=== PATIENT | male | born 1950 | race Caucasian/White ===

== ENCOUNTER 2019-06-28 01:49 | Inpatient (IN) | payer OTHER, MEDICARE ==
[~2019-06-28] VITALS: Ht 170.2 cm; Wt 88.4 kg
[~2019-06-28 01:49] MED LIST: ASPI81CH PO; LISI20 PO; Omeprazole20 M1; QUET100 PO; QUET25 PO
[2019-06-28 02:07] LABS: BASOPHILS ABSOLUTE AUTO 0.03 K/mm3 (0.00-0.23); BASOPHILS PERCENT AUTO 1 % (0-2); EOSINOPHILS ABSOLUTE AUTO 0.11 K/mm3 (0.00-0.68); EOSINOPHILS PERCENT AUTO 2 % (0-6); Hemoglobin 8.9 g/dL (13.5-17.5); IMMATURE GRAN ABSOLUTE AUTO 0.02 K/mm3 (0.00-0.10); IMMATURE GRAN PERCENT AUTO 0 % (0-1); LYMPHOCYTES ABSOLUTE AUTO 0.41 K/mm3 (0.84-5.20); LYMPHOCYTES PERCENT AUTO 8 % (21-46); MONOCYTES ABSOLUTE AUTO 0.49 K/mm3 (0.16-1.47); MONOCYTES PERCENT AUTO 10 % (4-13); Mean Corpuscular HGB 26.4 pg (26.0-34.0); Mean Corpuscular HGB Conc 30.7 g/dL (31.5-36.5); Mean Corpuscular Volume 86 fL (80-100); Mean Platelet Volume 10.3 fL (9.1-12.4); NEUTROPHILS PERCENT AUTO 80 % (41-73); Platelet Count 276 K/mm3 (150-400); RDW Coefficient Variation 15.2 % (11.7-14.2); RDW Standard Deviation 48.1 fL (35.1-46.3); Red Blood Cell Count 3.37 M/mm3 (4.30-5.90); White Blood Cell Count 5.16 K/mm3 (4.00-11.30)
[2019-06-28 02:25] LABS: Alanine Aminotransfer (ALT/SGP 26 U/L (12-78); Albumin, Blood 2.8 g/dL (3.4-5.0); Albumin/Globulin Ratio 0.7 (0.8-1.8); Alk Phos 111 U/L (50-136); Anion Gap 7 mmol/L (6-16); Aspartate Aminotrans (AST/SGOT 30 U/L (12-37); Bilirubin, Total 0.2 mg/dL (0.1-1.0); Blood Urea Nitrogen 17 mg/dL (8-24); Bun/Creatinine Ratio 16.7 (12.0-20.0); CO2, Blood 25 mmol/L (21-32); Calcium, Blood 8.5 mg/dL (8.5-10.1); Chloride, Blood 107 mmol/L (98-108); Creatinine, Blood 1.02 mg/dL (0.60-1.20); Glomerular Filtration Rate >60 (60-); Glucose, Blood 142 mg/dL (70-99); Potassium, Blood 3.8 mmol/L (3.5-5.5); Sodium, Blood 139 mmol/L (136-145); Total Protein, Blood 6.8 g/dL (6.4-8.2)
[2019-06-28 07:37] LABS: Percent Saturation 6.7 % (20.0-50.0)
[2019-06-28 07:41] LABS: Troponin I 0.024 ng/mL (0.000-0.040)
[2019-06-28] MEDS ORDERED: Vitamin D2000 UNIT PO (07:42)
[2019-06-28] MEDS ORDERED: QUET25 PO (07:46)
--- NOTE | 2019-06-28 13:44 | NUR ---
DR. HERNANDEZ NOTIFIED OF PT INCREASED RESTLESSNESS AND C/O DIFFICULTY BREAHTING. PT WITH AUDIBLE EXP WHEEZES AND TACHYPNEA. LS WITH EXP WHEEZES NOTED. ORDERS FOR RT TO PROVIDE A NEB TREATMENT AND MED ORDERS FOR PRN ANTIVAN FOR ANXIETY.
--- NOTE | 2019-06-28 14:14 | NUR ---
THIS RN TO ROOM; RECEIVED REPORT FROM BLANCA Self RN; RT AT BEDSIDE WITH BREATHING TREATMENT AND OXIMIZER AT 12-13L O2; RT SPOKE WITH DR HERNANDEZ; PLANS TO PLACE PT ON BIPAP. NO OUTPUT T/O; BLADDER SCAN 115cc. WILL CONTINUE TO MONITOR.
--- NOTE | 2019-06-28 14:21 | NUR ---
Pt put on bipap by Nakul Davis; currently weaned from [id number] to 70% 12/6 settings, rr 30/min. spo2 96%.
--- NOTE | 2019-06-28 14:50 | NUR ---
UNABLE TO ASSESS BP WITH MONITOR OR MANUALLY; PT ON BIPAP WITH O2 SATURATIONS IN 90'S. NOTIFIED DR HERNANDEZ; NEW ORDER TO TRANSFER TO ICU; LEVOPHED AND BACTERIOLOGIST FOOD CONSULT. PT TRANSFERED TO ICU 6; BEDSIDE REPORT GIVEN TO RN ASSUMING CARE.
[2019-06-28 15:03] LABS: International Normalized Ratio 1.15; Prothrombin Time Results 12.2 Sec (9.7-11.5)
[2019-06-28 16:08] LABS: PCO2 Arterial 38.9 mmHg (35-45)
[2019-06-28 16:08] LABS: Source, Urine Catheter
[2019-06-28 16:15] LABS: Bilirubin, Urine Neg (Neg); Blood, Urine Neg (Neg); Glucose Qualitative, Urine Neg (Neg); Ketones, Urine Neg (Neg); Leukocyte Esterase, Urine Neg (Neg); Nitrite, Urine Neg (Neg); Protein, Urine 2+ (Neg); Urobilinogen, Urine 2+ (Normal)
--- NOTE | 2019-06-28 16:23 | NUR ---
Echocardiogram completed.
[2019-06-28 16:30] LABS: Appearance, Urine Clear (Clear); Color, Urine Yellow (P-Yellow)
[2019-06-28 16:32] LABS: Bacteria Few /hpf; Calcium Oxalate Crystals Few /hpf; Red Blood Cells, Urine 0-2 /hpf (0-2); Squamous Epithelial Cells Not Seen /hpf (Few); White Blood Cells, Urine 0-2 /hpf (0-5)
[2019-06-28 16:43] LABS: U Amphetamine Screen DETECTED; U Barbituate Screen Not Detected; U Benzodiazapine Screen Not Detected; U Buprenorphine Screen Not Detected; U Cannabinoids Screen DETECTED; U Cocaine Screen Not Detected; U Methadone Screen Not Detected; U Methamphetamine Screen DETECTED; U Opiates Screen DETECTED; U Oxycodone Screen Not Detected; U Phencyclidine Screen Not Detected; U Propoxyphene Screen Not Detected
[2019-06-28 17:42] LABS: Hematocrit 28.9 % (37.0-53.0); Hemoglobin 8.3 g/dL (13.5-17.5); Mean Corpuscular HGB 26.1 pg (26.0-34.0); Mean Corpuscular HGB Conc 28.7 g/dL (31.5-36.5); Mean Platelet Volume 10.2 fL (9.1-12.4); Platelet Count 267 K/mm3 (150-400); RDW Coefficient Variation 15.6 % (11.7-14.2); RDW Standard Deviation 52.4 fL (35.1-46.3); Red Blood Cell Count 3.18 M/mm3 (4.30-5.90); White Blood Cell Count 1.72 K/mm3 (4.00-11.30)
[2019-06-28 17:43] LABS: Mean Corpuscular Volume 91 fL (80-100)
--- NOTE | 2019-06-28 17:45 | NUR ---
NEXT OF KIN: ATTEMPTED TO CALL MICHAEL MARTINEZ LISTED PATIENTS SON AND NEXT OF KIN. ATTEMPTED THE NUMBER ON FILE [phone] WHICH DID NOT WORK, WELL THE PATIENTS NUMBER [phone] LEFT A GENERAL MESSAGE TO CALL THE ICU AND TALK TO THE SPECIAL EVENTS COORDINATOR. [facility] AND OBTAINED TWO OTHER NUMBERS LISTED FOR THE SON ROSANNE CELL NUMBER [phone] THAT DID NOT HAVE A VOICE MAIL SET UP AND A WORK NUMBER OF [phone] WHICH ALSO DID NOT HAVE A VOICE MAIL SET UP. UPDATED THE DR AND NURSE.
[2019-06-28 17:59] LABS: Troponin I 0.033 ng/mL (0.000-0.040)
[2019-06-28 18:01] LABS: Albumin, Blood 1.7 g/dL (3.4-5.0); Albumin/Globulin Ratio 0.7 (0.8-1.8); Bilirubin, Total 0.3 mg/dL (0.1-1.0); Bun/Creatinine Ratio 13.4 (12.0-20.0); Calcium, Blood 7.2 mg/dL (8.5-10.1); Creatinine, Blood 1.72 mg/dL (0.60-1.20); Globulin, Blood 2.5 g/dL (2.2-4.0)
[2019-06-28 18:02] LABS: Total Protein, Blood 4.2 g/dL (6.4-8.2)
[2019-06-28 18:05] LABS: BAND PERCENT MAN 34 % (0-8); BASOPHILS PERCENT MAN 0 % (0-2); EOSINOPHILS PERCENT MAN 0 % (0-6); LYMPHOCYTES ABSOLUTE MAN 0.17 K/mm3 (0.84-5.20); LYMPHOCYTES PERCENT MAN 10 % (21-46); MONOCYTES PERCENT MAN 18 % (4-13); NEUTROPHILS ABSOLUTE MAN 1.23 K/mm3 (1.96-9.15); SEG NEUTROPHILS PERCENT MAN 38 % (41-73); TOTAL CELLS COUNTED 50
[2019-06-28 18:34] LABS: Automated BF RBC Count 0.004 M/mm3 (0-0); Automated BF WBC Count 3.224 K/mm3 (0-999); Body Fluid WBC Count 3224 /mm3 (0-999); RBC Count, Body Fluid 4000 /mm3 (0-0)
[2019-06-28 18:48] LABS: pH, Body Fluid 7.9
[2019-06-28 18:56] LABS: Albumin, Body Fluid 1.6 g/dL; Protein, Body Fluid 3.5 g/dL
[2019-06-28 18:57] LABS: Total Cell Count, Body Fluid 100
[2019-06-28 18:58] LABS: Appearance, Body Fluid Hazy (Clear); Color, Body Fluid Yellow (None-Yellow)
--- NOTE | 2019-06-28 19:00 | NUR ---
ASSUMED PT CARE FROM [facility] PT INTUBATED AND SEDATED. VENT SETTINGS AC 24, TV 450, PEEP 5, FIO2 90%. PROPOFOL AT 55 MCG/KG/MIN. CHEST TUBE RECENTLY PLACED TO LEFT POSTERIOR CHEST WALL; NO CREPITUS PALPATED; CHEST TUBE TO WALL SUCTION. NO TIDALING IN WATER SEAL CHAMBER WHEN TEMPORARILY TURNED SUCTION OFF. MODERATE AMOUNTS OF SEROUS FLUID DRAINING TO CHEST TUBE. PT HAS EPI GTT INFUSING AT 10MCG/MIN, LEVOPHED AT 20MCG/MIN, AND VASOPRESSIN AT 0.04 UNITS/HR. NS AT 75MLS/HR. ZOSYN INFUSING. NIMBEX ORDERED; WAITING FOR PHARMACY TO SEND. LUNG SOUNDS ARE COARSE TO LEFT LOBES AND VERY DIMINISHED TO RIGHT LOBES. UNABLE TO GET AN ACCURATE BIOX READING; DR. BUTLER AT BEDSIDE AND AWARE. ORDERS TO OBTAIN ABG AT 1999 IF WE CONTINUE TO HAVE DIFFICULTIES OBTAINING BIOX. CARBALLO CATH PATENT AND DRAINING DARK, PERLITA COLORED URINE WITH SEDIMENT TO GRAVITY; MINIMAL OUTPUT. DR. BUTLER AWARE. BEDSIDE REPORT GIVEN. GOAL IS TO START NIMBEX, IMPROVE OXYGEN SATURATIONS AND TITRATE PRESSORS DOWN, STARTING WITH EPI. WILL CONTINUE TO COMMUNICATE CHANGES WITH DR. BUTLER.
[2019-06-28 19:02] LABS: International Normalized Ratio 1.23
[2019-06-28 19:03] LABS: Lactate Dehydrogenase, Body Fl 1780 U/L
--- NOTE | 2019-06-28 19:29 | NUR ---
PT ARRIVES TO UNIT FROM PCU AT 1440 FOR HYPOTENSION. PT ON BIPAP, ANXIOUS, TACHYPNEIC. ANSWERS QUESTIONS APPROPRIATELY. C/O BILATERAL FLANK PAIN, WORSE IN LEFT SIDE, RADIATES TO ABD, STARTING "AWHILE AGO", WORSE LAST NOC. PT PULLING ON BIPAP, STATES IT IS SUFFOCATING HIM. DR BUTLER AT BEDSIDE FOR ASSESSMENT. PT PALE, COOL. TACHYPNIC. HYPOTENSION NOTED, AFIB, LUNGS c EXPIRATORY WHEEZES THROUGHOUT. LABORED RESP. NO CVA TENDERNESS NOTED. ABD FIRM, DISTENDED, NON TENDER. 1508-LEVOPHED STARTED, TITRATED. 1518-ETOMIDATE 10 MG, ROCURONIUM 20 MG IV GIVEN, INTUBATED 8.0 ETT, 26 AT TEETH, + COLOR CHANGE, BILATERAL BREATH SOUNDS. 1530-PROPOFOL STARTED, TITRATED FOR SEDATION. BILATERAL WRIST RESTRAINTS PLACED. OGT PLACED, SCANT AMOUNT OF EMESIS RETURN, VERIFIED BY AUSCULATION, PLACED TO LOW INTERMITTANT SUCTION. 1535-LEVOPHED PLACED ON STANDBY. 16 F CARBALLO PLACED, PERLITA URINE OUT. SENT TO LAB. 1619-LEVOPHED RESTARTED. 1630-TERRELL AT BEDSIDE FOR PICC PLACEMENT TO ROSS. 1637-PT CONTINUES TO BE HYPOTENSIVE, VASOPRESSIN STARTED. 1645-PREPARING PT FOR CT, EPI 1 MG IV GIVEN FOR HYPOTENSION, ONE ADDITIONAL MG GIVEN WHILE IN CT FOR HYPOTENSION PER DR CRUZ. 1735-BACK TO ROOM FROM CT. PT CONTINUES TO BE HYPOTENSIVE. EPI DRIP STARTED. OGT CLAMPED PER DR CRUZ. 1810-8F CHEST TUBE PLACED TO LEFT POSTERIOR CHEST FOR PLEURAL EFFUSION. SANGUNIOUS DRAINAGE SENT TO LAB. CONNECTED TO WATER SEAL. 500ML OUT THIS SHIFT. 1840-DR CRUZ AT BEDSIDE TO U/S RIGHT CHEST. RECTAL TEMP 97.5. REPORT TO BARB GONSALEZ. PT CURRENTLY HAS EPI GTT 10 MCG/MIN, LEVOPHED 20 MCG/MIN, VASOPRESSIN 0.04 UNITS/HR, PROPOFOL 45 MCG/KG/MIN, NS AT 75 ML/HR, ZOSYN AND VANCO INFUSING. CONTINUING TO HAVE DIFFICULTIES OBTAINING O2 SATS. CURRENTLY ON FOREHEAD, READING LOW 90'S INTERMITTANTLY. PT PALE, COOL. CURRENT VENT SETTINGS AC 24/450/5/90%.
[2019-06-28 19:34] LABS: PCO2 Arterial 32.7 mmHg (35-45); PO2 Arterial 54.8 mmHg (80-100); pH Blood Arterial 7.14 (7.35-7.45)
--- NOTE | 2019-06-28 19:40 | NUR ---
CALL TO DR. BUTLER NOTIFIED REGARDING CRITICAL ABG RESULTS; SEE LAB RESULT VALUES. NEW ORDERS TO INCREASE PEEP TO 10. INITIATE NIMBEX SOON IT ARRIVES AND SEE IF WE CAN GET A BETTER BIOX READING. DISCONTINUE NS AND START BICARB 3 AMPS, AT A RATE OF 75MLS/HR. NEW ORDERS TO REDRAW LACTIC ACID AND ABG AT 2300.
--- NOTE | 2019-06-28 20:16 | NUR ---
CALL TO DR. BUTLER NOTIFIED REGARDING INCREASE OF PEEP TO 10 AND FIO2 TO 100% WITH A GOOD BIOX PLETH AND OXYGEN SATURATIONS CONTINUING TO READ MID 80'S. NIMBEX INFUSING AT 2 MCG/KG/MIN. NEW ORDERS TO INCREASE PEEP TO 12, TURN PT TO LEFT SIDE WITH RIGHT LUNG UP AND SEE IF OXYGEN SATURATIONS IMPROVE. ORDERS FOR CPT IF OXYGEN SATURATIONS CONTINUE TO BE POOR AFTER ALL THE ABOVE INTERVENTIONS HAVE BEEN COMPLETED.
--- NOTE | 2019-06-28 20:54 | NUR ---
UPDATE DR. BUTLER CALLED FOR UPDATE ON STATUS. INFORMED THAT SINCE PT HAS BEEN TURNED BIOX READINGS HAVE BEEN GREATER THAN 95%. NEW ORDERS TO KEEP PEEP AT 12 AND THE GOAL IS TO TITRATE FIO2 DOWN TO A GOAL OF 50-60%. ALSO INFORMED DR. BUTLER THAT CHEST TUBE HAS PUT OUT A SIGNIFICANT AMOUNT SINCE TURN; TOTAL OF 1200CC OUTPUT SINCE START OF SHIFT. NO FURTHER ORDERS.
[2019-06-28 23:29] LABS: PCO2 Arterial 32.6 mmHg (35-45); PO2 Arterial 103 mmHg (80-100); pH Blood Arterial 7.22 (7.35-7.45)
--- NOTE | 2019-06-28 23:56 | NUR ---
ALLERGIES WHILE REVIEWING AND PROCESSING EXTERNAL ALLERGIES; AN ALLERGY TO PENICILLIN POPPED UP WITH NO KNOWN REACTION. PHARMACIST, CANDICE, CALLED AND STATED THAT PT IS CURRENTLY TAKING ZOSYN; HOWEVER, HAS RECEIVED UNASYN DURING PREVIOUS HOSPITAL ADMISSIONS. WILL RELAY TO DR. BUTLER.
--- NOTE | 2019-06-29 00:36 | NUR ---
DR. BUTLER UPDATE UPDATED ON PT STATUS REGARDING OXYGEN STATUS; NEW ORDERS TO DECRESAE PEEP TO 10 WITH AN FIO2 GOAL OF 50%. UPDATED REGARDING CHEST TUBE OUTPUT OF 1470CC THIS SHIFT. URINE OUTPUT 150CC THIS SHIFT. ALLERGIES TO PENICILLIN. CLARIFIED ORDER FOR GLUCOSE BODY FLUID ORDER; DR. BUTLER STATED IT WAS SUPPOSED TO BE RAN WITH SAMPLE THAT WAS SENT UP EARLIER. CALLED LAB TO SEE IF WE CAN RUN LAB OFF OF EARLIER SAMPLE; WAITING FOR A RETURN CALL. NEW ORDERS TO OBTAIN FLUID FROM EFFUSION AND SEND FOR CYTOLOGY.
[2019-06-29 01:00] LABS: Glucose, Body Fluid 6 mg/dL
[2019-06-29 02:02] LABS: Glucose, Body Fluid 14 mg/dL
[2019-06-29 03:58] LABS: BASOPHILS ABSOLUTE AUTO 0.01 K/mm3 (0.00-0.23); BASOPHILS PERCENT AUTO 0 % (0-2); EOSINOPHILS ABSOLUTE AUTO 0.01 K/mm3 (0.00-0.68); EOSINOPHILS PERCENT AUTO 0 % (0-6); Hematocrit 31.1 % (37.0-53.0); IMMATURE GRAN ABSOLUTE AUTO 0.05 K/mm3 (0.00-0.10); IMMATURE GRAN PERCENT AUTO 1 % (0-1); LYMPHOCYTES ABSOLUTE AUTO 0.31 K/mm3 (0.84-5.20); LYMPHOCYTES PERCENT AUTO 7 % (21-46); MONOCYTES ABSOLUTE AUTO 0.28 K/mm3 (0.16-1.47); MONOCYTES PERCENT AUTO 7 % (4-13); Mean Corpuscular HGB 25.1 pg (26.0-34.0); Mean Corpuscular HGB Conc 28.9 g/dL (31.5-36.5); Mean Corpuscular Volume 87 fL (80-100); Mean Platelet Volume 10.5 fL (9.1-12.4); NEUTROPHILS ABSOLUTE AUTO 3.51 K/mm3 (1.96-9.15); NEUTROPHILS PERCENT AUTO 84 % (41-73); Platelet Count 241 K/mm3 (150-400); RDW Coefficient Variation 15.3 % (11.7-14.2); RDW Standard Deviation 49.1 fL (35.1-46.3); Red Blood Cell Count 3.58 M/mm3 (4.30-5.90); White Blood Cell Count 4.17 K/mm3 (4.00-11.30)
[2019-06-29 04:16] LABS: BAND PERCENT MAN 56 % (0-8); BASOPHILS PERCENT MAN 0 % (0-2); EOSINOPHILS PERCENT MAN 0 % (0-6); LYMPHOCYTES ABSOLUTE MAN 0.37 K/mm3 (0.84-5.20); LYMPHOCYTES PERCENT MAN 9 % (21-46); METAMYELOCYTE ABSOLUTE MAN 0.45 K/mm3 (0.00-0.00); METAMYELOCYTE PERCENT MAN 11 % (0-0); MONOCYTES ABSOLUTE MAN 0.04 K/mm3 (0.16-1.47); MONOCYTES PERCENT MAN 1 % (4-13); NEUTROPHILS ABSOLUTE MAN 3.29 K/mm3 (1.96-9.15); SEG NEUTROPHILS PERCENT MAN 23 % (41-73); TOTAL CELLS COUNTED 100
[2019-06-29 04:17] LABS: Bun/Creatinine Ratio 14.7 (12.0-20.0); Calcium, Blood 7.3 mg/dL (8.5-10.1); Creatinine, Blood 1.84 mg/dL (0.60-1.20); Magnesium, Blood 1.9 mg/dL (1.6-2.4); Phosphorus, Blood 4.2 mg/dL (2.5-4.9); Potassium, Blood 4.5 mmol/L (3.5-5.5); Troponin I 0.141 ng/mL (0.000-0.040)
[2019-06-29 05:27] LABS: PCO2 Arterial 35.7 mmHg (35-45); PO2 Arterial 66.9 mmHg (80-100); pH Blood Arterial 7.24 (7.35-7.45)
--- NOTE | 2019-06-29 05:58 | NUR ---
END OF SHIFT SUMMARY VENT SETTINGS AC 24, TV 450, PEEP 10, FIO2 50%. SEDATED WITH PROPOFOL AT 30MCG/KG/MIN; BIS MONITOR READING 30-40'S. NIMBEX GTT AT 1MCG/KG/MIN WITH A TRAIN OF FOUR 2/4. SEE FLOWSHEET FOR FREQUENT TITRATIONS T/O SHIFT. CHEST TUBE TO LEFT POSTERIOR CHEST WALL REMAINS CONNECTED TO SUCTION; FLUCTUATION AND BUBBLING NOTED TO WATER SEAL CHAMBER. NO TIDALING TO WATER SEAL WHEN SUCTION IS TURNED OFF FOR A BRIEF MOMENT. PT IS PRODUCING COPIOUS AMOUNTS OF SEROUS PLEURAL DRAINAGE; 1630CC T/O SHIFT. NO AIRLEAK NOTED; NO CREPITUS PALPATED. LUNG SOUNDS FLUCTUATE FROM COARSE TO CLEAR. PT OXYGENATES BETTER TURNED TO LEFT SIDE; NONETHELESS, PLEURAL DRAINAGE INCREASES WHEN TURNED TO LEFT SIDE. PT HAS BEEN IN NSR WITH PAC'S; HR 80-90'S T/O SHIFT. FLUCTUATING BP'S; SEE FLOWSHEET. LEVOPHED CURRENTLY INFUSING AT 25MCG/MIN AND VASOPRESSIN AT 0.04UNIT/MIN. EPI HAS BEEN OFF SINCE APPROXIMATELY 2029; HOWEVER, STILL HANGING IN ROOM D/T LEVOPHED REQUIREMENTS SLOWLY INCREASING. OG REMAINS TO LOW INTERMITTENT SUCTION WITH MINIMAL AMOUNTS OF UNDIGESTED PARTICLES. PT HAD EMESIS X1 AROUND ETT THIS SHIFT PRIOR TO THE START OF NIMBEX. NO BM THIS SHIFT. HELD BM MEDS D/T EMESIS EPISODE; HOWEVER, PT HAS VERY HYPOACTIVE BT WITH CT RESULTS SHOWING CONSTIPATION. CARBALLO CATHETER IS PATENT AND DRAINING DARK, PERLITA COLORED URINE WITH SEDIMENT TO GRAVITY; 300CC ACCOUNTED FOR THIS SHIFT. WILL CONTINUE TO MONITOR UNTIL REPORT IS HANDED OFF TO ONCOMING RN.
--- NOTE | 2019-06-29 08:12 | NUR ---
ASSUMED CARE OF PT AT 0700. BEDSIDE REPORT FROM BARB GONSALEZ. PT INTUBATED, SEDATED, AND PARALYZED. VENT SETTINGS AC 24/450/10/50%. PT SYNCHRONOUS c VENT. PROPOFOL INFUSING AT 30 MCG/KG/MIN, BIS MONITOR MID 20'S-30'S. NIMBEX AT 1 MCG/KG/MIN, TRAIN OF FOUR 4/4. NO COUGH/GAG/SWALLOW. LUNGS COARSE THROUGHOUT, DMINISHED ON RIGHT SIDE. PIGTAIL CATH TO POSTERIOR LEFT CHEST, CONNECTED TO WATER SEAL, NO LEAKS/CREPITUS NOTED. DRESSING C/D/I. SEROUS FLUID IN CHAMBER. PT PALE, COOL. RECTAL TEMP 99.0. HR 80-90'S, SR. LEVOPHED INFUSING AT 25 MCG/MIN, VASOPRESSIN AT 0.04 UNITS/MIN. EPI DRIP ON STANDBY. WILL TITRATE PRESSORS FOR MAP >65. ABD FIRM, DISTENDED. BT HYPOACTIVE. TYMPANIC. OGT IN PLACE, TO LOW INTERMITTANT SUCTION, SCANT AMOUNT OF CLEAR FLUID IN TUBE. CARBALLO PATENT, DRAINING PERLITA CLEAR URINE TO GRAVITY. PICC LINE TO KACIE. DRESSING C/D/I. WILL CONTINUE TO MONITOR.
--- NOTE | 2019-06-29 09:48 | NUR ---
DR BUTLER AT BEDSIDE FOR ASSESSMENT. PLAN FOR TODAY, U/S GUIDED THORACENTESIS c POSSIBLE PLACEMENT OF CHEST TUBE. REMOVE OGT AND PLACE DOBHOFF, CONFIRM c XRAY. THEN D/C NIMBEX. REPEAT LABS AT 1600. EKG DONE AND SHOWN TO .
[2019-06-29 11:19] LABS: Automated BF RBC Count 0.002 M/mm3 (0-0); Automated BF WBC Count 8.025 K/mm3 (0-999); Body Fluid WBC Count 8025 /mm3 (0-999)
[2019-06-29 11:30] LABS: pH, Body Fluid 8.4
[2019-06-29 11:36] LABS: Protein, Body Fluid 3.3 g/dL
[2019-06-29 11:49] LABS: Lactate Dehydrogenase, Body Fl 1686 U/L
[2019-06-29 11:55] LABS: Appearance, Body Fluid Cloudy (Clear); Color, Body Fluid Yellow (None-Yellow); Total Cell Count, Body Fluid 100
[2019-06-29 13:45] LABS: PCO2 Arterial 34.1 mmHg (35-45); PO2 Arterial 82.8 mmHg (80-100)
[2019-06-29 13:46] LABS: pH Blood Arterial 7.23 (7.35-7.45)
--- NOTE | 2019-06-29 14:08 | NUR ---
THORACENTESIS COMPLETE. APPROX 650 ML OF SANGOUS FLUIDS COLLECTED, SENT TO LAB. AFTER PROCEDURE, DIFFICULTIES OBTAINING O2 SATS, INTERMITTANT READINGS OF MID 90'S. ATTEMPTED MULTIPLE PROBES AND AREAS. PT PALE, COOL. DOPPLER SBP 70'S, MONITOR READING SBP 100'S TO RLE. STARTED EPI GTT AT 5 MCG/MIN. DOPPLER SBP INCREASED TO 90'S. DR BUTLER NOTIFIED OF DISCREPANCIES. DISCUSSED ARTERIAL LINE PLACEMENT. SHE WILL REASSESS THIS AFTERNOON. WILL CONTINUE TO DOPPLER SBP. NIMBEX D/C'D AFTER THORACENTESIS. PT CURRENTLY BREATHING OVER VENT, 30-32/MIN. WILL CONTINUE TO TITRATE PROPOFOL. OGT REINSERTED BY ABBI. PLACEMENT VERIFIED BY RADIOLOGIST. OGT c LARGE FOOD PARTICLES. ATTEMPTED TO FLUSH, FLUSHES WELL, SLOW SUCTION OUT. WILL CONTINUE TO MONITOR. PLACED TO LOW INTERMITTANT SUCTION AT THIS TIME. SUCTION REMAINS OFF TO LEFT POSTERIOR CHEST TUBE PER DR BUTLER. LUNGS CONTINUE TO BE COARSE BILATERALLY.
[2019-06-29 16:33] LABS: Potassium, Blood 4.5 mmol/L (3.5-5.5); Troponin I 0.376 ng/mL (0.000-0.040)
[2019-06-29 17:42] LABS: Vancomycin, Trough 20.8 ug/mL (5.0-10.0)
--- NOTE | 2019-06-29 17:51 | NUR ---
SHIFT SUMMARY PT REMAINS INTUBATED, VENT SETTINGS AC 24/450/10/50%, SEDATED, PROPOFOL INFUSING AT 25 MCG/KG/MIN, BIS MONITOR 10-20'S, PARALYZED, NIMBEX 1 MCG/KG/MIN. TRAIN OF FOUR /4, PT SYNCHRONOUS c VENT. CHEST TUBE TO LEFT POSTERIOR WATER SEAL. 140 ML SEROUS DRAINAGE OUT THIS SHIFT. NO CREPITIUS NOTED. THORACENTESIS TO RIGHT CHEST TODAY, 650 ML OUT. LUNGS c RHONCHI THROUGHOUT, DIMINISHED IN LEFT LOWER LOBE. PRESSORS TITRATED TODAY. CURRENTLY VASOPRESSIN 0.04 UNITS/MIN AND LEVOPHED AT 10 MCG/MIN INFUSING. ARTERIAL LINE TO RIGHT GROIN PLACED THIS SHIFT. OGT TUBE REPOSITIONED THIS SHIFT, PLACEMENT VERIFIED BY XRAY. PLAN TO START FEEDS TOMORROW. CARBALLO PATENT AND DRAINING TO GRAVITY. 140 ML PERLITA URINE OUT THIS SHIFT. PLAN TO CONTINUE PARALYTICS OVERNIGHT AND REASSESS TOMORROW. WILL CONTINUE TO MONITOR UNTIL REPORT TO ONCOMING NURSE. PALLATIVE CARE CONSULTED TODAY TO ASSIST IN CONTACTING FAMILY. CHIEF SECURITY [facility]IC[facility]ED [facility] BUT NO ADDITIONAL CONTACTS WERE OBTAINED.
--- NOTE | 2019-06-29 19:15 | NUR ---
ASSUMED PT CARE FROM [facility] PT REMAINS INTUBATED WITH VENT SETTINGS AC 24, TV 450, PEEP 10, FIO2 50%. SEDATED AND PARALYZED WITH NIMBEX AT 1MCG/KG/MIN AND PROPOFOL AT 20 MCG/KG/MIN. PT UNRESPONSIVE. BIS MONITOR READING 0-3; WILL CHANGE OUT IN ORDER TO OBTAIN A MORE ACCURATE READING. TRAIN OF FOUR: 4/4; HOWEVER, PT IS SYNCHRONOUS WITH VENT AND PT REMAINS UNRESPONSIVE TO NOXIOUS STIMULI. CHEST TUBE TO WATER SEAL; NO DRAINAGE OUT SINCE 1800. DRESSING CDI WITH NO CREPITUS NOTED. NO TIDALING IN WATER SEAL CHAMBER. LUNG SOUNDS REMAIN CLEAR/DIMINISHED. NSR WITH HR 80-90'S. OG TUBE HOOKED TO LOW INTERMITTENT SUCTION; HOWEVER, NOT MUCH OUT OUTPUT IS VERY THICK AND CHUNKY. LEVOPHED REMAINS AT 20MCG/KG/MIN AND VASOPRESSIN AT 0.04 UNITS/MIN. ARTERIAL LINE TO RIGHT FEMORAL SITE; SEE FLOWSHEET FOR VS. ART LINE TRANSDUCER ZERO'D AT START OF SHIFT AND PRESSORS TITRATED ACCORDING TO BLOOD PRESSURES; SEE FLOWSHEET. PT HAS SCROTAL EDEMA; APPEARS WORSE THAN YESTERDAY WITH SMALL OPEN AREAS STARTING TO APPEAR FROM THE STRETCHING OF SKIN; DARK PURPLE IN COLOR. DEPENDENT EDEMA TO BILATERAL HANDS. CARBALLO CATHETER IS PATENT AND DRAINING SCANT AMOUNTS OF DARK, PERLITA COLORED URINE TO GRAVITY. PICC TO LUE; DRESSING IS CDI. HAVING A DIFFICULT TIME OBTAINING ACCURATE OXYGEN SATURATIONS; WILL CALL DR. BUTLER FOR ABG ORDERS IF UNABLE TO FIND A SITE WITH AN ACCURATE READING. BEDSIDE REPORT GIVEN.
--- NOTE | 2019-06-29 21:03 | NUR ---
UPDATE CALL OUT TO DR. BUTLER REGARDING LACTIC ACID RESULTS OF 8.2; NEW ORDERS FOR ONE LITER BOLUS. ALSO INFORMED OF POOR OXYGEN SATURATION READINGS AND LOW DIASTOLIC PRESSURES IN THE 40'S. NEW ORDERS TO OBTAIN ABG VIA ARTERIAL LINE. CALL BACK WITH ANY ABNORMAL/CRITICAL RESULTS.
[2019-06-29 21:48] LABS: PO2 Arterial 71.2 mmHg (80-100)
[2019-06-29 21:49] LABS: pH Blood Arterial 7.14 (7.35-7.45)
--- NOTE | 2019-06-29 22:30 | NUR ---
SEDATION VACATION AT 2044 TURNED OFF NIMBEX AND PROPOFOL D/T POOR BIS MONITOR READING OF 0-3 EVEN AFTER CHANGING OUT BIS MONITOR LEADS WITH NO IMPROVEMENT. NIMBEX AND PROPOFOL OFF FOR AN HOUR AND A HALF. PT REMAINED UNRESPONSIVE WITH A MAX BIS READING OF 20. RESPIRATORY RATE INCREASED TO THE 30'S. NO RESPONSE TO PAIN OR VERBAL STIMULI. NO PLANTAR REFLEX NOTED. THEREFORE, TURNED PROPOFOL BACK ON AT 10MCG/KG/MIN AND NIMBEX BACK TO 1MCG/KG/MIN.
[2019-06-30 04:09] LABS: Hematocrit 29.5 % (37.0-53.0); Hemoglobin 8.6 g/dL (13.5-17.5); Mean Corpuscular HGB 25.2 pg (26.0-34.0); Mean Corpuscular HGB Conc 29.2 g/dL (31.5-36.5); Mean Corpuscular Volume 87 fL (80-100); NRBC ABSOLUTE 0.05 K/mm3 (0.00-0.02); NRBC Auto 0.7 /100 WBC (0.0-0.2); Platelet Count 172 K/mm3 (150-400); RDW Coefficient Variation 15.1 % (11.7-14.2); RDW Standard Deviation 48.4 fL (35.1-46.3); Red Blood Cell Count 3.41 M/mm3 (4.30-5.90); White Blood Cell Count 7.53 K/mm3 (4.00-11.30)
[2019-06-30 04:26] LABS: Magnesium, Blood 2.2 mg/dL (1.6-2.4)
[2019-06-30 04:28] LABS: Bun/Creatinine Ratio 13.5 (12.0-20.0); Calcium, Blood 6.7 mg/dL (8.5-10.1); Creatinine, Blood 2.74 mg/dL (0.60-1.20)
--- NOTE | 2019-06-30 04:31 | NUR ---
TEMP TRENDING DOWN NOTICED TEMP TRENDING DOWN AROUND 0200. ATTEMPTED WARM BLANKETS; HOWEVER, UNSUCCESSFUL. TEMP NOW 95.0. BEAR HUGGER PLACED ON PT.
[2019-06-30 04:34] LABS: PCO2 Arterial 34.8 mmHg (35-45); PO2 Arterial 83.9 mmHg (80-100); pH Blood Arterial 7.08 (7.35-7.45)
[2019-06-30 04:43] LABS: Phosphorus, Blood 8.7 mg/dL (2.5-4.9); Potassium, Blood 6.5 mmol/L (3.5-5.5)
[2019-06-30 04:52] LABS: BAND PERCENT MAN 42 % (0-8); BASOPHILS PERCENT MAN 0 % (0-2); EOSINOPHILS PERCENT MAN 0 % (0-6); LYMPHOCYTES ABSOLUTE MAN 0.52 K/mm3 (0.84-5.20); LYMPHOCYTES PERCENT MAN 7 % (21-46); METAMYELOCYTE PERCENT MAN 4 % (0-0); MONOCYTES ABSOLUTE MAN 0.07 K/mm3 (0.16-1.47); MONOCYTES PERCENT MAN 1 % (4-13); MYELOCYTE ABSOLUTE MAN 0.15 K/mm3 (0.00-0.00); MYELOCYTE PERCENT MAN 2 % (0-0); NEUTROPHILS ABSOLUTE MAN 6.47 K/mm3 (1.96-9.15); SEG NEUTROPHILS PERCENT MAN 44 % (41-73); TOTAL CELLS COUNTED 100
--- NOTE | 2019-06-30 04:56 | NUR ---
CRITICAL RESULTS CALLED TO DR. BUTLER INFORMED DR. BUTLER OF CRITICAL LAB RESULTS OF ABG PH 7.08, LACTIC ACID 10.9, POTASSIUM 6.5, AND PHOSPHORUS 8.7. NEW ORDERS TO GIVE SODIUM BICARB 3AMPS IV PUSH, CALCIUM GLUCONATE 1 AMP, RENAL CONSULT FOR DIALYSIS, INCREASE BICARB GTT TO 150CC/HR.
--- NOTE | 2019-06-30 05:15 | NUR ---
DR. BUTLER CALLED BACK ASKED FOR A STAT TROPONIN, STAT PARTIAL ECHO TO SEE EJECTION FRACTION, ORDERS TO RESTART EPI AT A RATE OF 5-8MCG/MIN FOR POSSIBLE CARDIOGENIC SHOCK AND TITRATE LEVOPHED OFF FIRST FOR A GOAL MAP OF 60 MM HG. WELL A ONE TIME ORDER OF 80MG LASIX NOW.
--- NOTE | 2019-06-30 06:15 | NUR ---
END OF SHIFT SUMMARY PT INTUBATED WITH NO CHANGE IN VENT SETTINGS. SEDATED WITH PROPOFOL AT 10MCG/KG/MIN; REMAINS UNRESPONSIVE. BIS MONITOR NOT READING ACCURATELY; THEREFORE, UNPLUGGED FROM MONITOR. NIMBEX INFUSING AT 0.5MCG/KG/MIN WITH TRAIN OF 4: 0/0; HOWEVER, PT IS SYNCHRONOUS WITH VENT. LEVOPHED INFUSING AT 10MCG/KG/MIN, EPI AT 8MCG/MIN, AND VASOPRESSIN AT 0.04 UNITS/MIN. ORDERS FROM [facility] TO TITRATE LEVOPHED AND LEAVE EPI BETWEEN 5-8 MCG/MIN D/T LOW DIASTOLIC PRESSURES FOR POSSIBLE CARDIOGENIC SHOCK. OG HOOKED TO LOW CONTINUOUS SUCTION D/T THICK GI CONTENTS THAT KEEP CLOGGING SUCTION TUBING; THICK, BROWN OUTPUT. NO BM THIS SHIFT. SCANT AMOUNT OF URINE OUTPUT; DARK PERLITA 50CC TOTAL. DR. BUTLER AWARE. PT WAS GIVEN 3 AMPS BICARB WITH GTT INCREASED TO 150CC/HR, AND LASIX 80MG GIVEN WELL. DR. ANDERSON IN TO SEE PT; NEW ORDERS FOR ALBUMIN 25G FOLLOWED BY BUMEX 4MG, STAT ABG AND RENAL PANEL; CALL WITH RESULTS TO SEE ABOUT MORE BICARB. SEE OTHER NOTES FOR FURTHER ORDERS FROM DR. BUTLER. WILL CONTINUE TO MONITOR UNTIL REPORT IS HANDED OFF TO ONCOMING RN.
[2019-06-30 06:34] LABS: PCO2 Arterial 37.7 mmHg (35-45); PO2 Arterial 85.7 mmHg (80-100)
[2019-06-30 06:35] LABS: pH Blood Arterial 7.13 (7.35-7.45)
[2019-06-30 07:31] LABS: Anion Gap 20 mmol/L (6-16); Blood Urea Nitrogen 37 mg/dL (8-24); Bun/Creatinine Ratio 13.5 (12.0-20.0); CO2, Blood 11 mmol/L (21-32); Chloride, Blood 99 mmol/L (98-108); Creatinine, Blood 2.75 mg/dL (0.60-1.20); Glomerular Filtration Rate 23 (60-); Glucose, Blood 61 mg/dL (70-99); Sodium, Blood 130 mmol/L (136-145)
[2019-06-30 07:32] LABS: Albumin, Blood 1.4 g/dL (3.4-5.0); Calcium, Blood 6.7 mg/dL (8.5-10.1)
[2019-06-30 07:34] LABS: Potassium, Blood 6.7 mmol/L (3.5-5.5)
[2019-06-30 07:35] LABS: Phosphorus, Blood 8.7 mg/dL (2.5-4.9)
--- NOTE | 2019-06-30 10:00 | NUR ---
[place] of Care: Care assumed at 0700hr, bedside report received from NOC shift RN. Patient intubated/sedated, and on Nimbex gtt. Vent to AC 24/450/10/50%, tolerating vent without difficulty. SpO2 reading difficulty to obtain, but reading 96-100% when good waveform obtained. Propofol gtt at 10mcg/kg/min, Nimbex gtt at 0.5mcg/kg/min. T/F 2/4, respiratory rate at back-up rate of 24. Art line in place to rt femoral artery, dressing shows some blood drainage (dry), no s/s of of bleeding/hematoma. Systolic BP's low 100's, MAPs- 50's-70's. Levophed gtt 10mcg/min, Epinephrine gtt 8 mcg/min, and Vasopressin at 0.04u/hr. PICC line to ASHA patent and intact, infusing without difficulty. Brandt cath patent and intact, draining minimal amount of dark yellow urine (Dr. Mckinney aware of urine output). Chest tube to lt posterior chest wall. Chest tube site WNL, C/D/I. Chest tube to water-seal at this time. Received call from Dr. Mckinney shortly after shift change r/t repeat BMP values elif at 0630hr. Received orders for x2 amp of Sodium Bicarb IV now, and to consult Dr. Sutton for dialysis catheter placement, and to inform dialysis center of need for dialysis today. Call then placed to Dr. Sutton to inform of need for dialysis catheter. Dr. Sutton then to room at approx 0900hr to place Dialysis catheter. Catheter placed to rt IJ without difficulty. Line placement confirmed by chest x-ray, read by Dr. Sutton. During line placement, patient's BP declined to systolic of 70's, and HR increased to 180's. Received instructions per Dr. Sutton to increase Levophed gtt to 18 mcg/min and for 150 mg of Amiodarone IV push x1. Amiodarone push given and patient's HR decreased back to 80's (sinus rhythm). Systolic pressure improved to low 100's, MAP's 50's to 60's. Reviewed instructions per Dr. Sutton to leave vasopressor gtt's at current rate at this time. Then received orders per Dr. Sutton for repeat ABG, and BMP. Values obtained and reported to Dr. Sutton. Awaiting dialysis treatment at this time. BP and HR stable. Will continue to monitor.
--- NOTE | 2019-06-30 10:27 | NUR ---
Echocardiogram completed.
[2019-06-30 10:49] LABS: PCO2 Arterial 35.2 mmHg (35-45); PO2 Arterial 73.8 mmHg (80-100)
[2019-06-30 10:50] LABS: pH Blood Arterial 7.17 (7.35-7.45)
[2019-06-30 11:11] LABS: Bun/Creatinine Ratio 13.4 (12.0-20.0); Calcium, Blood 6.3 mg/dL (8.5-10.1); Creatinine, Blood 2.9 mg/dL (0.60-1.20)
[2019-06-30 11:12] LABS: Vancomycin, Random 17.1 ug/mL
[2019-06-30 11:18] LABS: Adenovirus Not Detected (NOT DETECT); Bordetella pertussis Not Detected (NOT DETECT); Chlamydophila pneumoniae Not Detected (NOT DETECT); Coronavirus 229E Not Detected (NOT DETECT); Coronavirus HKU1 Not Detected (NOT DETECT); Coronavirus NL63 Not Detected (NOT DETECT); Coronavirus OC43 Not Detected (NOT DETECT); Human Metapneumovirus Not Detected (NOT DETECT); Human Rhinovirus/Enterovirus Not Detected (NOT DETECT); Influenza A/2009-H1 Not Detected (NOT DETECT); Influenza A/H1 Not Detected (NOT DETECT); Influenza A/H3 Not Detected (NOT DETECT); Influenza B Not Detected (NOT DETECT); Mycoplasma pneumoniae Not Detected (NOT DETECT); Parainfluenza Virus 1 Not Detected (NOT DETECT); Parainfluenza Virus 2 Not Detected (NOT DETECT); Parainfluenza Virus 3 Not Detected (NOT DETECT); Parainfluenza Virus 4 Not Detected (NOT DETECT); Respiratory Syncytial Virus Not Detected (NOT DETECT)
[2019-06-30 11:27] LABS: Potassium, Blood 4.6 mmol/L (3.5-5.5)
--- NOTE | 2019-06-30 12:39 | NUR ---
ATTEMPT TO CONTACT FAMILY AGAIN TRIED TO CONTACT FAMILY FOR THIS PT. TRIED ALL PHONE NUMBERS PREVIOUSLY LISTED IN CHART AND WAS NOT ABLE TO SPEAK WITH ANYONE. PHONE NUMBERS WENT STRAIGHT TO VOICE MAIL BOXES THAT WERE NOT SET UP TO RECEIVE MESSAGES.
--- NOTE | 2019-06-30 13:40 | NUR ---
FAMILY CONTACT FINALLY ABLE TO GET IN TOUCH WITH THE PT'S SON, MICHAEL. UPDATE PROVIDED ON PT'S CRITICAL CONDITION CURRENTLY. DISCUSSED DIALYSIS, TO WHICH MICHAEL IS AGREEABLE. PLAN TO HAVE DR. DEL CID CALL MICHAEL TO DISCUSS FURTHER. MICHAEL'S PHONE NUMBER IS [phone].
--- NOTE | 2019-06-30 14:04 | NUR ---
attetmpted to contact family, had icu charge nurse called [facility] office they were able to find family.
--- NOTE | 2019-06-30 16:16 | NUR ---
FAMILY CONTACT INFO: PT'S SISTER EVERARDO MARTINEZ - [phone]
--- NOTE | 2019-06-30 16:40 | NUR ---
Update: Patient has been receiving dialysis for approx 1hr at this time. Patient's BP decreased to systolic 70's-80's, MAPs 50's, HR also increased to 120's-140's. Levophed gtt increased to 30mcg/min. Tonya RN (Dialysis) nurse changed settings to dialysis to remove now fluid. Call placed to Dr. Sutton, informed her of patient's condition and current time of dialysis. Received instruction to terminate dialysis at this time, and to draw ABG when finished.
[2019-06-30 17:05] LABS: PCO2 Arterial 40.4 mmHg (35-45); PO2 Arterial 63.6 mmHg (80-100)
[2019-06-30 17:41] LABS: Albumin, Blood 1.5 g/dL (3.4-5.0); Anion Gap 19 mmol/L (6-16); Blood Urea Nitrogen 26 mg/dL (8-24); Bun/Creatinine Ratio 12.6 (12.0-20.0); CO2, Blood 19 mmol/L (21-32); Calcium, Blood 6.3 mg/dL (8.5-10.1); Chloride, Blood 94 mmol/L (98-108); Creatinine, Blood 2.07 mg/dL (0.60-1.20); Glomerular Filtration Rate 34 (60-); Glucose, Blood 90 mg/dL (70-99); Potassium, Blood 3.8 mmol/L (3.5-5.5); Sodium, Blood 132 mmol/L (136-145)
[2019-06-30 17:44] LABS: Phosphorus, Blood 4.9 mg/dL (2.5-4.9)
--- NOTE | 2019-06-30 18:11 | NUR ---
Pt son in to meet with doctor day and review care. Confrenced with pt. He made his father DNR. Theraputic time with son. He has not experienced ICU or ventilator care with anyone he knows. Review of vitilation and dialysis and multisystem failure. review of possbily making some hard decisions. Son confirmed he is next of kin and only child. Gave him the number directly to icu and our office for support. Advised him if prognosis changes or declines we will update him. Review of tolerance of UF with dialysis nurse. Will continue to support son with plan of care.
--- NOTE | 2019-06-30 18:29 | NUR ---
Shift Summary: No significant changes throughout remainder of shift. Blood pressure slightly improved after stopping dialysis, but systolic BP remains in 90's-low 100's, MAP's 50's-60's, HR decreased slightly to 120's-130's (Dr. Sutton aware of VS). Levophed gtt remained at 30mcg/min, and Epinephrine gtt at 8mcg/min throughout remainder of shift. Only 27ml dark yellow urine output throughout shift, Dr. Sutton also aware of urine output. Chest changed from wall suction to water-seal early this afternoon, no air leak or crepitus noted, dressing/site remains C/D/I. Repeat ABG and Renal function panel (after dialysis) showed good improvement. No new orders received. Charge nurse Matilda able to contact patient's son "Roberto" this afternoon. media analytics manager then arranged for a x1 visit for son. Dr. Sutton and Palliative RN Mary both spoke with patient's son upon arrival. Decision made to make patient DNR. Son now at bedside. Will continue to monitor until report to NOC shift RN.
--- NOTE | 2019-06-30 19:30 | NUR ---
ASSUMED CARE REPORT RECIEVED. PT IS RESTING IN BED, INTUBATED, SEDATED, AND PARALYZED. VENT SETTINGS AC 24, TV 450, PEEP 10, FIO2 60%. PICC TO [facility] C/D/I. NIMBEX INFUSING AT 0.5 MCG/KG/MIN. TRAIN OF FOUR IS 3/4 AT THIS TIME. SEE FLOW SHEET FOR VASOPRESSOR AND GTT TITRATIONS. DIALYSIS CATH TO [facility] C/D/I, CAPS IN PLACE. ART LINE TO RIGHT FEMORAL C/D/I. VITAL SIGNS STABLE WITH HR 110-130'S AND SBP 80-110'S. CARBALLO IN PLACE WITH MINIMAL DARK OUTPUT NOTED. RECTAL TEMP PROBE IN PLACE. CHEST TUBE TO LEFT POSTERIOR CHEST C/D/I TO WATER SEAL. PT SON AT BEDSIDE AT THIS TIME. UPDATED TO PLAN OF CARE. WILL CONTINUE TO MONITOR. SEE ASSESSMENT FOR MORE INFO.
--- NOTE | 2019-06-30 21:38 | NUR ---
TRAIN OF FOUR PT WITH CONSISTANT 4/4 TRAIN OF FOUR. PT WITH GAG LIKE MOVEMENT NOTED. NIMBEX INCREASED TO 1 MCG/KG/MIN.
[2019-07-01 03:47] LABS: Hematocrit 23.1 % (37.0-53.0); Hemoglobin 7.4 g/dL (13.5-17.5); Mean Platelet Volume 11.3 fL (9.1-12.4); NRBC ABSOLUTE 0.09 K/mm3 (0.00-0.02); NRBC Auto 0.7 /100 WBC (0.0-0.2); Platelet Count 98 K/mm3 (150-400); RDW Coefficient Variation 15.1 % (11.7-14.2); RDW Standard Deviation 44.4 fL (35.1-46.3); Red Blood Cell Count 2.85 M/mm3 (4.30-5.90); White Blood Cell Count 12.85 K/mm3 (4.00-11.30)
[2019-07-01 04:00] LABS: Mean Corpuscular Volume 81 fL (80-100)
[2019-07-01 04:11] LABS: Albumin, Blood 1.3 g/dL (3.4-5.0); Albumin/Globulin Ratio 0.6 (0.8-1.8); Bilirubin, Total 1.5 mg/dL (0.1-1.0); Bun/Creatinine Ratio 12.1 (12.0-20.0); Creatinine, Blood 2.56 mg/dL (0.60-1.20); Phosphorus, Blood 6.8 mg/dL (2.5-4.9); Potassium, Blood 4.1 mmol/L (3.5-5.5); Total Protein, Blood 3.3 g/dL (6.4-8.2)
[2019-07-01 04:18] LABS: International Normalized Ratio 1.87; Prothrombin Time Results 19.3 Sec (9.7-11.5)
[2019-07-01 04:29] LABS: BAND PERCENT MAN 30 % (0-8); BASOPHILS PERCENT MAN 0 % (0-2); EOSINOPHILS PERCENT MAN 0 % (0-6); LYMPHOCYTES ABSOLUTE MAN 0.25 K/mm3 (0.84-5.20); LYMPHOCYTES PERCENT MAN 2 % (21-46); METAMYELOCYTE ABSOLUTE MAN 0.64 K/mm3 (0.00-0.00); METAMYELOCYTE PERCENT MAN 5 % (0-0); MONOCYTES ABSOLUTE MAN 0.25 K/mm3 (0.16-1.47); MONOCYTES PERCENT MAN 2 % (4-13); MYELOCYTE ABSOLUTE MAN 0.38 K/mm3 (0.00-0.00); MYELOCYTE PERCENT MAN 3 % (0-0); SEG NEUTROPHILS PERCENT MAN 58 % (41-73); TOTAL CELLS COUNTED 100
[2019-07-01 05:43] LABS: PCO2 Arterial 45.2 mmHg (35-45); PO2 Arterial 69.5 mmHg (80-100); pH Blood Arterial 7.28 (7.35-7.45)
--- NOTE | 2019-07-01 06:10 | NUR ---
SHIFT SUMMARY PT REMAINS INTUBATED, SEDATED, AND PARALYZED. VENT SETTINGS REMAIN UNCHANGED AT AC 24, TV 450, PEEP 10, FIO2 60%. CHEST TUBE REMAINS INTACT TO LEFT UPPER POSTERIOR CHEST TO WATER SEAL. NO NEW OUTPUT NOTED. PICC TO ASHA REMAINS C/D/I. LEVOPHED TITRATED BETWEEN 24-30 MCG/MIN, AND EPI GTT REMAINS AT 8 MCG/MIN. SBP HAS VARIED BETWEEN 70-130'S. PT RESPONDED WELL TO 1L LR BOLUS DURING PERIOD OF PROLONGED HYPOTENSION. ART LINE TO R FEMORAL REMAINS C/D/I. DIALYSIS CATH REMAINS C/D/I. OGT IN PLACE TO LIS WITH MINIMAL OUTPUT NOTED. CARBALLO REMAINS IN PLACE WITH 20 ML URINE OUTPUT NOTED. DR DEL CID AWARE AND UPDATED TO AM LABS. PT REMAINS SEDATED WITH PROPOFOL AT 10 MCG/KG/MIN. NIMBEX TITRATED BETWEEN 0.5-1 MCG/KG/MIN. TRAIN OF FOUR IS CURRENTLY 4/4. NO PURPOSFUL MOVEMENTS NOTED THROUGHOUT THE SHIFT. BICARB GTT INFUSING AT 150 ML/HR. SEE FLOWSHEET FOR GTT TITRATIONS. WILL CONTINUE TO MONITOR AND REPORT OFF TO ONCOMING RN.
--- NOTE | 2019-07-01 08:36 | NUR ---
Mcdonald of Care: Care assumed at 0700hr. Patient remains intubated, sedated, and on Nimbex gtt. Vent to AC 24/450/10/60%, tolerating vent mode without difficulty. T/F 0/4, therefore Nimbex gtt decreased from 1mcg/kg/min to 0.5 mcg/kg/min. Propofol gtt at 10mcg/kg/min. Patient unresponsive at this time. Pupils equal and sluggish. No gag, cough, corneal, or plantar reflex noted. Levophed gtt at 24mcg/min, Epinephrine gtt at 8mcg/min. Systolic BP low 100's-120's, MAPs- 60's-70's. Arterial line to rt femoral, patent and intact, waveform on monitor wnl. PICC line to ASHA patent and intact, infusing without difficulty. Dialysis cath to rt IJ, site/dressing C/D/I. Dialysis catheter flushed and caps changed by carpenters helper yesterday. Brandt cath patent and intact, draining very minimal dark yellow urine, only 10ml at this time. At approx 0745, seizure like activity noted. Patient showed tonic/jerking motions of arms, and twitching of tongue. Pupils remained equal and sluggish, no nystagmus or twitching of eyes noted. Call placed to Dr. Sutton, received order for one time dose of 2mg Ativan IV. Ativan given with good effect, no signs of seizure activity at this time.
[2019-07-01 12:06] LABS: Vancomycin, Random 14.6 ug/mL
[2019-07-01 16:31] LABS: Albumin, Blood 1.6 g/dL (3.4-5.0); Anion Gap 15 mmol/L (6-16); Blood Urea Nitrogen 21 mg/dL (8-24); Bun/Creatinine Ratio 11.5 (12.0-20.0); CO2, Blood 23 mmol/L (21-32); Calcium, Blood 6.3 mg/dL (8.5-10.1); Chloride, Blood 92 mmol/L (98-108); Creatinine, Blood 1.82 mg/dL (0.60-1.20); Glomerular Filtration Rate 39 (60-); Glucose, Blood 158 mg/dL (70-99); Phosphorus, Blood 5.8 mg/dL (2.5-4.9); Potassium, Blood 3.7 mmol/L (3.5-5.5); Sodium, Blood 130 mmol/L (136-145)
--- NOTE | 2019-07-01 18:43 | NUR ---
Shift Summary: No significant changes throughout shift. Vent settings remain at AC 24/450/10/65%. Tolerated vent setting throughout shift, spO2- 92-98%. Temporal spO2 probe moved throughout forehead q1-2hr throughout shift. Nimbex at 1mcg/kg/min throughout shift. Propofol gtt at 10mcg/kg/min throughout shift. Patient remains unresponsive. S/s of seizure activity this morning (see assumption note), Ativan given, and no further s/s of seizures throughout shift. Levophed gtt increased to 30mcg/min during dialysis, then able to titrate down to 16 mcg/min after dialysis finished. Epinephrine at 8mcg/min throughout shift. PICC line to ASHA remains patent and intact, infusing without difficulty. Dressings changed to rt IJ HD cath, and rt femoral arterial line this shift. HD cath dressing remains C/D/I. Rt femoral arterial line dressing becoming saturated with serous drainage from insertion site and suture sites. Brandt cath patent and intact, continues to drain minimal amount of urine, 40ml throughout shift. Lt posterior chest tube patent and intact, 110ml serous drainage, no s/s of air leak or crepitus.
--- NOTE | 2019-07-01 19:45 | NUR ---
ASSUMED CARE REPORT RECIEVED. PT IS LAYING IN BED, INTUBATED, SEDATED, AND PARALYZED. VENT SETTINGS AC 24, TV 450, PEEP 10, FIO2 60%. PT WITH CHEST TUBE TO POSTERIOR LEFT UPPER CHEST. SCANT DRAINAGE NOTED AT SITE. CHEST TUBE INSERTION SITE REINFORCED WITH FOAM TAPE. SEROUS DRAINAGE NOTED IN TUBING. CHEST TUBE TO WATER SEAL AT THIS TIME. PT WITH SCANT ETT SECRETIONS AT THIS TIME. OGT IN PLACE TO LIS. DIALYSIS CATH C/D/I TO RIGHT IJ, CAPS IN PLACE. PICC TO ASHA. DRSG CHANGED AT THIS TIME DUE TO EDEMA PULLING DRSG TIGHT. NIMBEX INFUSING AT 1 MCG/KG/MIN. TRAIN OF FOUR IS 4/4 AT THIS TIME. NO SPONTANEOUS MOVEMENT NOTED. PT SEDATED WITH PROPOFOL AT 10 MG/KG/MIN. ART LINE IN PLACE TO RIGHT FEMORAL SITE. ZEROED AND GOOD WAVEFORM NOTED. SEE FLOWSHEET FOR VASOPRESSOR TITRATIONS. CARBALLO IN PLACE WITH MINIMAL DARK YELLOW OUTPUT NOTED. SEVERE HYDROCELE NOTED AND GENERALIZED EDEMA. SEE FULL SHIFT ASSESSMENT FOR MORE INFO. WILL CONTINUE TO MONITOR.
[2019-07-02 03:50] LABS: PCO2 Arterial 37.5 mmHg (35-45); PO2 Arterial 43.3 mmHg (80-100); pH Blood Arterial 7.34 (7.35-7.45)
[2019-07-02 03:56] LABS: Hematocrit 24.1 % (37.0-53.0); Hemoglobin 7.9 g/dL (13.5-17.5); Mean Corpuscular HGB 26.3 pg (26.0-34.0); Mean Corpuscular HGB Conc 32.8 g/dL (31.5-36.5); Mean Corpuscular Volume 80 fL (80-100); Mean Platelet Volume 11.1 fL (9.1-12.4); NRBC ABSOLUTE 0.17 K/mm3 (0.00-0.02); Platelet Count 59 K/mm3 (150-400); RDW Coefficient Variation 15.3 % (11.7-14.2); RDW Standard Deviation 44.6 fL (35.1-46.3); White Blood Cell Count 17.47 K/mm3 (4.00-11.30)
[2019-07-02 04:14] LABS: BAND PERCENT MAN 20 % (0-8); BASOPHILS PERCENT MAN 0 % (0-2); EOSINOPHILS PERCENT MAN 0 % (0-6); LYMPHOCYTES ABSOLUTE MAN 0.34 K/mm3 (0.84-5.20); LYMPHOCYTES PERCENT MAN 2 % (21-46); METAMYELOCYTE ABSOLUTE MAN 0.17 K/mm3 (0.00-0.00); METAMYELOCYTE PERCENT MAN 1 % (0-0); MONOCYTES ABSOLUTE MAN 0.52 K/mm3 (0.16-1.47); MONOCYTES PERCENT MAN 3 % (4-13); NEUTROPHILS ABSOLUTE MAN 16.42 K/mm3 (1.96-9.15); SEG NEUTROPHILS PERCENT MAN 74 % (41-73); TOTAL CELLS COUNTED 100
[2019-07-02 04:17] LABS: Albumin, Blood 1.4 g/dL (3.4-5.0); Albumin/Globulin Ratio 0.8 (0.8-1.8); Bun/Creatinine Ratio 11.2 (12.0-20.0); Calcium, Blood 6.3 mg/dL (8.5-10.1); Creatinine, Blood 2.23 mg/dL (0.60-1.20); Globulin, Blood 1.8 g/dL (2.2-4.0); Phosphorus, Blood 6.9 mg/dL (2.5-4.9); Potassium, Blood 4.2 mmol/L (3.5-5.5); Total Protein, Blood 3.2 g/dL (6.4-8.2)
--- NOTE | 2019-07-02 05:51 | NUR ---
SHIFT SUMMARY PT REMAINS INTUBATED, SEDATED, AND PARALYZED. PT DECOMPENSATED THIS AM, REQUIRING INCREASE OF FIO2 TO 100% AND PEEP TO 14. PT CURRENTLY WITH SPO2 >92%. SBP 90-120'S. PICC TO ASHA C/D/I WITH EPI INFUSING AT 8 MCG/MIN, LEVOPHED 18 MCG/KG/MIN, VASOPRESSIN 0.04 UNITS/MIN. ARTERIAL LINE CLOTTED OFF THIS AM. LINE PULLED FROM RIGHT FEMORAL SITE, MANUAL PRESSURE HELD. NIBP'S READING SBP 90'S AT THIS TIME. PT SEDATED WITH PROPOFOL AT 10 MCG/KG/MIN. NIMBEX AT 1 MCG/KG/MIN. TRAIN OF FOUR IS 4/4 AT THIS TIME. OGT REMAINS IN PLACE TO LIS WITH MINIMAL OUTPUT NOTED. CARBALLO REMAINS IN PLACE WITH 10 ML URINE OUTPUT THIS SHIFT. PT REMAINS EDEMATOUS AND WEEPING HAS INCREASED THROUGHOUT THE SHIFT. HYDROCELE HAS REMAINED UNCHANGED. WILL CONTINUE TO MONITOR AND REPORT OFF TO ONCOMING RN.
[2019-07-02 07:07] LABS: HBSAG SCREEN Negative (Negative); HEP A AB, IGM Negative (Negative); HEP B CORE AB, IGM Negative (Negative); HEP C VIRUS AB >11.0 (0.0-0.9)
--- NOTE | 2019-07-02 08:30 | NUR ---
[place] of Care: Care assumed at 0700hr. Patient remains intubated and sedated. Vent to AC 24/450/14/100%, spO2-96%, FiO2 then decreased to 90%. Nimbex gtt remains at 1mcg/kg/min, propofol gtt at 10mcg/kg/min. Discussed vacation from Nimbex and propofol with Dr. Sutton this morning. Received instruction to wait until after scheduled dialysis today, to give sedation vacation. Chest tube to lt posterior chest wall, site C/D/I. Chest tube set to water-seal at shift change, then changed to wall suction early this morning per Dr. Sutton. No air leak, or crepitus noted. Arterial line to rt femoral removed on NOC shift, site dressed with absorbant dressing and clear occlusive, shows some serosanguineous drainage, will monitor. Levophed, Epinephrine, and Vasopressin continue to infuse, see flow-sheet. PICC line to ASHA remains patent and intact, infusing without difficulty. Brandt cath remains patent and intact, continues to drain minimal amount of dark yellow urine. Dr. Mckinney to room this morning, states plan for dialysis again today. Also received instructions from Dr. Sutton this morning to continue Amiodarone gtt at 0.5 mg/min. Will continue to monitor.
[2019-07-02 13:53] LABS: Vancomycin, Random 19.5 ug/mL
--- NOTE | 2019-07-02 17:54 | NUR ---
Shift Summary: No significant changes to vent settings throughout shift. Vent remains to AC 24/450/14/85-100%, spO2-mostly 93-96%, but decreased to 88-92% for short period of time during dialysis. Patient able to tolerate full length of dialysis treatment today but, no fluid was removed. BP during dialysis decreased to systolic of 60's (assessed with dopler at times), levophed gtt increased from 20mcg/min to 30mcg/min. BP improved after dialysis, but levophed gtt remains 28-30mcg/min throughout remainder of shift, systolic 80's-90's, MAP 50's-70. Epinephrine gtt at 8mcg/min throughout shift, patient's HR unable to tolerate any increase in epinephrine gtt. Patient's HR increased during dialysis and converted to A-fib, 110-120, with pvc's. Spoke with Dr. Sutton, who ordered magnesium level (result wnl), the received order of Amiodarone 150mg bolus IV over 10min. Amiodarone helpful, HR now 90's- low 100's, but remains A-fib. Chest tube remains to wall suction, only 35ml serous output, site remains wnl, no air leak or crepitus noted. PICC remains patent and intact, infusing without difficulty. Nimbex gtt placed on stand-by approx 1645, and propofol gtt placed on stand-by approx 1730. Patient unresponsive and without reflexes, occasional small jerking of head to one-side. Dr. Sutton aware of changes and gtt's placed on stand-by. Plan to leave Nimbex and propofol off as long as patient continues to tolerate.
[2019-07-03 04:31] LABS: BASOPHILS ABSOLUTE AUTO 0.17 K/mm3 (0.00-0.23); BASOPHILS PERCENT AUTO 1 % (0-2); Hematocrit 27.9 % (37.0-53.0); Hemoglobin 8.7 g/dL (13.5-17.5); LYMPHOCYTES ABSOLUTE AUTO 0.14 K/mm3 (0.84-5.20); LYMPHOCYTES PERCENT AUTO 1 % (21-46); Mean Corpuscular HGB 26.6 pg (26.0-34.0); Mean Corpuscular HGB Conc 31.2 g/dL (31.5-36.5); NRBC ABSOLUTE 0.25 K/mm3 (0.00-0.02); NRBC Auto 1.3 /100 WBC (0.0-0.2); RDW Coefficient Variation 15.9 % (11.7-14.2); RDW Standard Deviation 49.9 fL (35.1-46.3); Red Blood Cell Count 3.27 M/mm3 (4.30-5.90); White Blood Cell Count 19.23 K/mm3 (4.00-11.30)
[2019-07-03 04:32] LABS: EOSINOPHILS PERCENT AUTO 0 % (0-6); IMMATURE GRAN PERCENT AUTO 1 % (0-1); MONOCYTES ABSOLUTE AUTO 0.97 K/mm3 (0.16-1.47); MONOCYTES PERCENT AUTO 5 % (4-13); Mean Corpuscular Volume 85 fL (80-100); NEUTROPHILS ABSOLUTE AUTO 17.85 K/mm3 (1.96-9.15); NEUTROPHILS PERCENT AUTO 93 % (41-73)
[2019-07-03 04:34] LABS: Platelet Count 22 K/mm3 (150-400)
[2019-07-03 04:41] LABS: PCO2 Arterial 36.3 mmHg (35-45); PO2 Arterial 51.6 mmHg (80-100)
[2019-07-03 04:42] LABS: pH Blood Arterial 7.16 (7.35-7.45)
[2019-07-03 04:51] LABS: Albumin, Blood 1.5 g/dL (3.4-5.0); Albumin/Globulin Ratio 0.8 (0.8-1.8); Bilirubin, Total 4.5 mg/dL (0.1-1.0); Calcium, Blood 6.8 mg/dL (8.5-10.1); Creatinine, Blood 2.21 mg/dL (0.60-1.20); Globulin, Blood 1.8 g/dL (2.2-4.0); Magnesium, Blood 2.2 mg/dL (1.6-2.4); Potassium, Blood 4.6 mmol/L (3.5-5.5); Total Protein, Blood 3.3 g/dL (6.4-8.2)
[2019-07-03 05:01] LABS: Phosphorus, Blood 7.9 mg/dL (2.5-4.9)
[2019-07-03 05:06] LABS: BAND PERCENT MAN 32 % (0-8); BASOPHILS PERCENT MAN 0 % (0-2); EOSINOPHILS PERCENT MAN 0 % (0-6); METAMYELOCYTE ABSOLUTE MAN 1.15 K/mm3 (0.00-0.00); METAMYELOCYTE PERCENT MAN 6 % (0-0); MONOCYTES ABSOLUTE MAN 0.19 K/mm3 (0.16-1.47); MONOCYTES PERCENT MAN 1 % (4-13); NEUTROPHILS ABSOLUTE MAN 17.88 K/mm3 (1.96-9.15); SEG NEUTROPHILS PERCENT MAN 61 % (41-73); TOTAL CELLS COUNTED 100
[2019-07-03 05:11] LABS: International Normalized Ratio 1.61; Prothrombin Time Results 16.8 Sec (9.7-11.5)
--- NOTE | 2019-07-03 05:48 | NUR ---
DOCTOR NEHEMIAS NOTIFIED OF DROP IN SAT, ABG, PLATELET, PTT, AND AM CHEST X-RAY. WILL CONTINUE WITH CURRENT TREATMENT.
--- NOTE | 2019-07-03 06:00 | NUR ---
PATIENT REMAINS INTUBATED, NO LONGER ABLE TO OBTAIN A RELIABLE BIOX READING, OR BLOOD PRESSURE. DOCTOR NEHEMIAS AWARE. CHEST TUBE TO LEFT POSTERIOR REMAINS IN GOOD POSITION WITH NO AIR LEAK AND NO DRAINAGE. NO URINE OUTPUT. DRESSING TO RIGHT GROIN CHANGED DUE TO DRAINING YELLOW/PINK DRAINAGE. WEEPING EDEMA T/O. SCROTUM AND LEFT ARM WITH MOST OF THE DRAINAGE. LEVOPHED 30MCG, EPI 10 MCG, AND VASOPRESSIN 0.04 FOR HYPOTENSION. PROPOFOL REMAINS OFF WITH NO RESPONSE FROM PATIENT T/O NIGHT. PATIENT OCCASIONALLY WILL MOVE HEAD BACK AND FORTH, NO MOVEMENT SEEN IN EXTREMITIES.
--- NOTE | 2019-07-03 08:14 | NUR ---
Gregory/ Call to Dr. Melendez + Family: Care assumed at 0700hr. Patient remains intubated, but has been off sedation and Nimbex gtt since yesterday afternoon. Patient remains unresponsive, and without reflexes. Only able to obtain doppler BP's, which show 62/D. SpO2 reading remains difficult to assess, temporal reading showed 82% on 100% FiO2. HR shows sinus rhythm in the 50's with occasional PVC's and PJC's. Levophed gtt at 30mcg/min, Epinephrine gtt at 10mcg/min, Vasopressin at 0.04u/hr. Informed by NOC shift RN that Dr. Sutton was made aware of patient's current condition and updated on this morning's lab values. Lab values show worsening in lactic acid and ABG values. No new orders received from Dr. Sutton, but she instructed to call Dr. Melendez this morning to update on patient's condition/ discuss plan of care. This nurse called Dr. Melendez at approx 0730hr. Informed Dr. Melendez of patient's condition, lab values, and lack of improvement over last several days. Discussed plan for dialysis and thoracentesis today, Dr. Melendez agreed that both procedures should be canceled r/t patient's condition and risk of causing further harm/. Also discussed current vasopressor medications and rates of infusion. Received instruction per Dr. Melendez to maintain current gtt's, do not increase epinephrine gtt. Conversation with Dr. Melendez concluded that patient may need to be placed on comfort measures and that family should be notified/updated. Sona RN, spoke with nursing supervisor type bar and segment Brain RN, received permission to arrange visit from patient's son Roberto. This nurse placed call to patient's SON Roberto, updated on patient's condition, lack of improvement, and possibility of patient's . Roberto expressed understanding of the situation, and agreed to come see the patient. Awaiting arrival of Roberto at this time.
--- NOTE | 2019-07-03 10:45 | NUR ---
REview of pt with nursing. goal is comfort care. Advised nursing will assst juice with support and funneral planning and grief.
--- NOTE | 2019-07-03 11:12 | NUR ---
Comfort Care: Patient son (Roberto) arrived to room at approx 0915hr. Comfort care again discussed with Roberto at that time, but informed him he did not have to make any immediate decisions and to take his time. Dr. Melendez also came to room to discuss patient's condition and prognosis with Roberto. Roberto remained at bedside and provided coffee, denied any other needs. Hong then decided/stated "it was time", and that he was ok with providing comfort measures. This nurse informed Dr. Melendez of Rboerto's decision, and Dr. Melendez placed comfort care orders, 1057hr. All IV pumps stopped, but patient remains intubated and on ventilator (confirmed with Dr. Melendez). [facility] offerred and Roberto accepted. Milo Winters notified and in patient's room at this time.
--- NOTE | 2019-07-03 11:27 | NUR ---
pt tput on comfort care. chaplian notifed family at bedside. chaplian will help with funneral plans
--- NOTE | 2019-07-03 11:32 | NUR ---
TOD: Heart monitor showed a-systole at 1116hr. Lack of apical pulse verrified via auscultation. Dr. Melendez notified of TOD (1116hr). Patient son Roberto remains at bedside. Roberto states he would like the patient to be transported to [facility].
--- NOTE | 2019-07-03 12:44 | NUR ---
[facility] care visit conducted. Patient has been moved to comfort care and I am asked by WALLACE Kang to check in on family. Family members Roberto and Kristen are present and tearful. I conduct a life review of patient. Roberto is tearful as he highlights the good qualities his father has. I provide prayer. Patient expires and I provide grief support, a calming presence and another prayer. Family respond well and grieve appropriately. I give Roberto my business card for assistance in the future with /memorial arrangements (maybe after Covid-19 restrictions lift).
[2019-07-05 13:10] LABS: HEPARIN INDUCED PLATELET AB 0.072 OD (0.000-0.400)
== END 2019-07-03 11:16 | DRG 870 ==
LOC: ER 01:49 → PCU 01:50 → ICUE 01:50 → PCU 06:21 → ICUE 14:52
PROVIDERS: Emergency Medicine; Internal Medicine; Internal Medicine Critical Care Medicine; Internal Medicine Nephrology; Internal Medicine Pulmonary Disease; Pharmacist; ADMIT Family Medicine
PROC: 0W9930Z Drainage of Right Pleural Cavity with Drainage Device, Percutaneous Approach (ICD-10-PCS; 2019-06-28)
PROC: 0BH17EZ Insertion of Endotracheal Airway into Trachea, Via Natural or Artificial Opening (ICD-10-PCS; principal; 2019-06-29)
PROC: 5A1955Z Respiratory Ventilation, Greater than 96 Consecutive Hours (ICD-10-PCS; 2019-06-29)
PROC: 3E043XZ Introduction of Vasopressor into Central Vein, Percutaneous Approach (ICD-10-PCS; 2019-06-29)
PROC: 04HY32Z Insertion of Monitoring Device into Lower Artery, Percutaneous Approach (ICD-10-PCS; 2019-06-29)
PROC: 0JH63XZ Insertion of Tunneled Vascular Access Device into Chest Subcutaneous Tissue and Fascia, Percutaneous Approach (ICD-10-PCS; 2019-06-29)
PROC: 05HM33Z Insertion of Infusion Device into Right Internal Jugular Vein, Percutaneous Approach (ICD-10-PCS; 2019-06-29)
PROC: 5A1D70Z Performance of Urinary Filtration, Intermittent, Less than 6 Hours Per Day (ICD-10-PCS; 2019-06-30)
DX: A41.9 Sepsis, unspecified organism (principal); J18.9 Pneumonia, unspecified organism; R65.21 Severe sepsis with septic shock; J96.01 Acute respiratory failure with hypoxia; N17.0 Acute kidney failure with tubular necrosis; E87.1 Hypo-osmolality and hyponatremia; J93.9 Pneumothorax, unspecified; Z51.5 Encounter for palliative care; F15.10 Other stimulant abuse, uncomplicated; F12.10 Cannabis abuse, uncomplicated; Z85.01 Personal history of malignant neoplasm of esophagus; Z87.891 Personal history of nicotine dependence; E78.5 Hyperlipidemia, unspecified; I12.9 Hypertensive chronic kidney disease with stage 1 through stage 4 chronic kidney disease, or unspecified chronic kidney disease; N18.9 Chronic kidney disease, unspecified; D63.1 Anemia in chronic kidney disease; E87.5 Hyperkalemia
CPT/HCPCS: 0099U; 31500; 31720; 32551; 32555; 36415; 36430; 36569; 36600; 36620; 51702; 71045; 71260; 74018; 74174; 74176; 76770; 80048; 80053; 80069; 80074; 80202; 81001; 82040; 82042; 82272; 82607; 82728; 82746; 82803; 82945; 82947; 83540; 83550; 83605; 83615; 83690; 83735; 83880; 83986; 84100; 84132; 84157; 84443; 84484; 85025; 85379; 85610; 85730; 86022; 86317; 86850; 86900; 86901; 86923; 87040; 87070; 87075; 87077; 87086; 87106; 87186; 87205; 88108; 88305; 88341; 88342; 89051; 93005; 93010; 93306; 93308; 93321; 94002; 94003; 94640; 94660; 96361; 96365; 96366; 96374; 96375; 96376; 99285-25; C1751; C1752; C9113; G0378; J0171; J0282; J0610; J0881; J1170; J1630; J1644; J1720; J1815; J1885; J1940; J1953; J2060; J2248; J2270; J2405; J2543; J2704; J2765; J3010; J3370; J7030; J7040; J7050; J7060; J7070; J7120; P9016; P9046; Q9967; U0002